=== PATIENT | male | born 1985 | race American Indian/Alaskan Native ===

== ENCOUNTER 2021-11-07 08:25 | Emergency (ER) | payer SELFPAY ==
[2021-11-07] MEDS ORDERED: levETIRAcetam 1000 MG/NS 0.75% 1,000 MG/100 ML BAG IV ONE (10:02)
[2021-11-07] MEDS ORDERED: ACETAMINOPHEN 325 MG TAB PO ONE (10:04)
--- NOTE | 2021-11-07 10:07 | Emergency Department Report ---
ED General Adult HPI - General Chief complaint: Seizure Stated complaint: SEIZURE IN SLEEP PUI?: No Time Seen by Provider: 11/07/21 09:48 Source: patient Mode of arrival: Ambulatory Limitations: No Limitations - History of Present Illness Initial comments: Pleasant 35-year-old male with medical history of seizure which according patient is not any antiepileptic medication came in today with concerns of seizure while he was asleep. Patient current endorse headache. Patient denies any other symptoms denies fever chill night sweat dizziness blurred vision lightheadedness tinnitus ear pain runny nose sore throat loss of taste loss smell chest pain palpitation short of breath cough abdominal pain nausea vomiting diarrhea constipation joint pain muscle pain new rash and heat or cold intolerance. - Related Data Previous Rx's Medication Instructions Recorded Last Taken Type levETIRAcetam [Keppra TAB] 500 mg PO BID 30 Days #60 tablet 11/07/21 Unknown Rx Allergies Allergy/AdvReac Type Severity Reaction Status Date / Time No Known Allergies Allergy Verified 11/07/21 09:29 ED Review of Systems ROS: Stated complaint: SEIZURE IN SLEEP Other details as noted in HPI Comment: All other systems reviewed and negative Constitutional: no symptoms reported, see HPI Eyes: as per HPI ENT: as per HPI Respiratory: no symptoms reported, see HPI Cardiovascular: as per HPI Endocrine: no symptoms reported, see HPI Gastrointestinal: as per HPI Genitourinary: as per HPI Musculoskeletal: as per HPI Skin: as per HPI Neurological: as per HPI Psychiatric: as per HPI Hematological/Lymphatic: as per HPI ED Past Medical Hx - Past Medical History Previous Medical History?: Yes Hx Seizures: Yes - Social History Smoking Status: Current Every Day Smoker Substance Use Type: None - Medications Home Medications: Home Medications Medication Instructions Recorded Confirmed Last Taken Type levETIRAcetam [Keppra TAB] 500 mg PO BID 30 Days #60 tablet 11/07/21 Unknown Rx ED Physical Exam - General Limitations: No Limitations General appearance: alert, in no apparent distress - Head Head exam: Present: atraumatic, normocephalic, normal inspection - Eye Eye exam: Present: normal appearance, PERRL, EOMI Pupils: Present: normal accommodation - ENT ENT exam: Present: normal exam, mucous membranes moist - Neck Neck exam: Present: normal inspection, full ROM - Respiratory Respiratory exam: Present: normal lung sounds bilaterally - Cardiovascular Cardiovascular Exam: Present: regular rate, normal rhythm, normal heart sounds - GI/Abdominal GI/Abdominal exam: Present: soft - Extremities Exam Extremities exam: Present: normal inspection, full ROM, normal capillary refill - Back Exam Back exam: Present: normal inspection, full ROM - Neurological Exam Neurological exam: Present: alert, oriented X3, CN II-XII intact - Psychiatric Psychiatric exam: Present: normal affect, normal mood - Skin Skin exam: Present: normal color ED Course Vital Signs 11/07/21 11/07/21 11/07/21 08:47 09:24 09:29 Temperature 97.7 F Pulse Rate 60 73 Respiratory 14 16 16 Rate Blood Pressure 106/74 O2 Sat by Pulse 100 98 Oximetry 11/07/21 11/07/21 11/07/21 09:30 09:46 10:00 Temperature Pulse Rate 48 L 46 L 46 L Respiratory 11 L 16 17 Rate Blood Pressure 117/74 111/75 111/75 O2 Sat by Pulse 99 99 99 Oximetry 11/07/21 10:16 Temperature Pulse Rate 47 L Respiratory 21 Rate Blood Pressure 115/75 O2 Sat by Pulse 98 Oximetry ED Medical Decision Making - Lab Data Result diagrams: 11/07/21 11:08 - EKG Data -: EKG Interpreted by Fl EKG shows normal: sinus rhythm Rate: bradycardia - EKG Data 11/07/21 10:27 EKG AT 1023: SINUS ÓSCAR AT 48 BPM; NO ST ELEVATION OR DEPRESSION; NO PROLONG QT/QTC Critical care attestation.: If time is entered above; I have spent that time in minutes in the direct care of this critically ill patient, excluding procedure time. ED Disposition Clinical Impression: Seizure Disposition: 01 HOME / SELF CARE / HOMELESS Is pt being admited?: No Does the pt Need Aspirin: No Condition: Stable Additional Instructions: TAKE KEPPRA PRESCRIBED FOR YOU AND AVOID DOING ANYTHING THAT WILL REQUIRE YOUR FULL ATTENTION SUCH DRIVING, HANS DIVING, SWIMMING, ETC. MAKE A FOLLOW UP APPOINTMENT WITH PRIMARY CARE PROVIDER OF YOUR CHOICE TO BE SEEN WITHIN 3 DAYS. Prescriptions: levETIRAcetam [Keppra TAB] 500 mg PO BID 30 Days #60 tablet Referrals: PRIMARY CARE, [Primary Care Provider] - 3-5 Days Time of Disposition: 14:39
--- NOTE | 2021-11-07 10:39 | XRay Report ---
XR chest 1V ap INDICATION / CLINICAL INFORMATION: SEIZURE. COMPARISON: None available. FINDINGS: SUPPORT DEVICES: None. HEART /PULMONARY VASCULATURE: No significant abnormality. LUNGS / PLEURA: No significant pulmonary or pleural abnormality. No pneumothorax. ADDITIONAL FINDINGS: No significant additional findings. IMPRESSION: 1. No acute findings. Signer Name: Valentin Mays MD Signed: 11/07/2021 10:35 AM Workstation Name: [id number]
--- NOTE | 2021-11-07 11:48 | Cat Scan Report ---
CT HEAD WITHOUT CONTRAST INDICATION / CLINICAL INFORMATION: SEIZURE. TECHNIQUE: Axial imaging performed from the skull apex through the skull base without the use of cont rast. Sagittal and coronal reformatted images. All CT scans at this location are performed using CT dose reduction for ALARA by means of automated exposure control. COMPARISON: None available. FINDINGS: CEREBRAL PARENCHYMA: No significant abnormality. No acute territorial infarct. HEMORRHAGE: None. EXTRA-AXIAL SPACES: Normal in size and morphology for the patient's age. VENTRICULAR SYSTEM: Normal in size and morphology for the patient's age. MIDLINE SHIFT OR HERNIATION: None. CEREBELLUM / BRAINSTEM: No significant abnormality. CALVARIUM: No significant abnormality. ORBITS: Normal as visualized. PARANASAL SINUSES / MASTOID AIR CELLS: Normal as visualized. SOFT TISSUES of HEAD: No significant abnormality. ADDITIONAL FINDINGS: None. IMPRESSION: No acute intracranial abnormality. Signer Name: Johnny Anne Jr, MD Signed: 11/07/2021 11:44 AM Workstation Name: [id number]
[2021-11-07 11:54] LABS: Alanine Aminotransferase 28 units/L (7-56); Albumin 4.1 g/dL (3.9-5); BUN/Creatinine Ratio 13; Blood Urea Nitrogen 13 mg/dL (9-20); Hemolysis Index 41
[2021-11-07] MEDS ORDERED: SODIUM CHLORIDE 0.9% 1000 ML 2,000 ML IV ONE (13:09)
[2021-11-07 15:00] VITALS: BP 115/81
--- NOTE | 2021-11-09 17:16 | Electrocardiograph Report ---
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
== END 2021-11-07 15:00 | disposition home or self-care (01) ==
LOC: ED 08:25
DX: R56.9 Unspecified convulsions (principal); R51.9 Headache, unspecified; F17.200 Nicotine dependence, unspecified, uncomplicated; Z79.899 Other long term (current) drug therapy
CPT/HCPCS: 70450; 71045; 80053; 82140; 82550; 83735; 93005; 96361; 96374; 99284; J1953; J7030